=== PATIENT | male | born 1955 | race Caucasian/White ===

== ENCOUNTER 2016-10-14 13:34 | Emergency (ER) | payer OTHER ==
[~2016-10-14] VITALS: Ht 167.6 cm; Wt 73.5 kg
[2016-10-14 13:58] VITALS: BP 91/63
--- NOTE | 2016-10-14 14:16 | NUR ---
Patient ambulated to bed 4.
--- NOTE | 2016-10-14 14:20 | NUR ---
61/M BIB family/daughter c/o using high dose of Heroin into nostril as liquid form x 2am today---no s/s resp distress at this time--alert and oriented, was instructed to come to ER for check up by sponsors---pt states being clear for 2 months. AAOx4, PERRL, BREATHING EVEN AND UNLABORED. ERMD NOTIFIED OF PATIENT STATUS. WILL CONTINUE TO MONITOR.
--- NOTE | 2016-10-14 14:30 | NUR ---
Patient being evaluated by physician at bedside.
[2016-10-14 15:06] VITALS: BP 106/61
--- NOTE | 2016-10-14 15:06 | NUR ---
Patient discharged with v/s stable. Written and verbal after care instructions given and explained. Patient verbalized understanding. Ambulatory with steady gait. All questions addressed prior to discharge. Advised to follow up with PMD.
== END 2016-10-14 15:06 | disposition home or self-care (01) ==
LOC: MED 13:34
DX: F11.10 Opioid abuse, uncomplicated (principal); Z88.5 Allergy status to narcotic agent

== ENCOUNTER 2018-01-10 09:25 | Inpatient (IN) | payer OTHER ==
[~2018-01-10] VITALS: Ht 167.6 cm; Wt 70.3 kg
--- NOTE | 2018-01-10 09:25 | NUR ---
PATIENT BIBA TO BED 3 AT THIS TIME.
[2018-01-10 09:27] VITALS: BP 139/86
--- NOTE | 2018-01-10 09:46 | NUR ---
PT BIBA FOR C/O CP 12/11 SINCE 3AM THIS MORNING. DENIES N/V/DIZZINESS OR SOB. PT IS CALM, FOLLOWING COMMANDS, ANSWERING QUESTIONS, RELAXED WITH LEGS CROSSED. PT PLACED ON ALL MONITORS, VS WNL. EKG COMPLETE DURING TRIAGE --> NSR. DR MARTIN AT BEDSIDE TO [place]
[2018-01-10] MEDS ORDERED: NACL 0.9% 1,000 ML IV ONE (09:50)
[2018-01-10] MEDS ORDERED: LAM200 PO (09:55)
[2018-01-10] MEDS ORDERED: BUPR300T70 PO (09:55)
[2018-01-10] MEDS ORDERED: RISP0.5T3 PO (09:55)
[2018-01-10] MEDS ORDERED: DIVA500T1 PO (09:55)
[2018-01-10 10:12] LABS: BASOPHILS % (AUTO) 0.5 % (0.0-2.0); EOSINOPHILS % (AUTO) 0.7 % (0.0-4.0); HEMATOCRIT 48.9 % (36-52); HEMOGLOBIN 16.5 g/dL (12.0-18.0); LYMPHOCYTES # (AUTO) 2.4 K/uL (2.0-11.5); LYMPHOCYTES % (AUTO) 45.4 % (20.5-51.1); MEAN CORPUSCULAR HEMOGLOBIN 31 pg (27-31); MEAN CORPUSCULAR HGB CONC 34 g/dL (33-37); MEAN CORPUSCULAR VOLUME 92.9 fL (80-94); MONOCYTES # (AUTO) 0.4 K/uL (0.8-1.0); MONOCYTES % (AUTO) 6.8 % (1.7-9.3); NEUTROPHILS # (AUTO) 2.4 K/uL (1.8-7.7); NEUTROPHILS % (AUTO) 46.6 % (42.2-75.2); PLATELET COUNT (AUTO) 120 K/uL (140-450); RED BLOOD CELL COUNT(AUTO) 5.26 MIL/uL (4.20-6.10); RED CELL DISTRIBUTION WIDTH 13.9 % (11.6-13.7); WHITE BLOOD COUNT (AUTO) 5.3 K/uL (4.8-10.8)
[2018-01-10 10:27] LABS: ALBUMIN 3.8 g/dL (3.4-5.0); CARBON DIOXIDE 22.8 mmol/L (21-32); CREATININE 0.9 mg/dL (0.7-1.3); POTASSIUM 3.8 mmol/L (3.5-5.1); TOTAL BILIRUBIN 0.5 mg/dL (0.0-1.0)
--- NOTE | 2018-01-10 10:30 | NUR ---
PT INAPPROPRIATELY GRABBING THE US TECHS BREAST DURING THE ABD US. PT INSTRUCTED NOT TO DO ANYTHING SEXUALLY INAPPROPRIATE LIKE THIS AGAIN TO HOSPITAL STAFF OR PD WILL BE CALLED. PT VERBALIZES UNDERSTANDIND WITH "OK."
[2018-01-10 10:31] LABS: LIPASE 1281 U/L (73-393)
--- NOTE | 2018-01-10 11:00 | NUR ---
Patient appears to be resting comfortably in bed. Vital Signs within normal limits. Respirations even and unlabored. PENDING ADMIT ORDERS
[2018-01-10] MEDS ORDERED: NACL 0.9% 1,000 ML IV SCH (11:16)
[2018-01-10] MEDS ORDERED: ONDANSETRON 4 MG/2 ML VIAL IVP PRN (11:20)
[2018-01-10] MEDS ORDERED: ACETAMINOPHEN 325 MG TAB PO PRN (11:20)
[2018-01-10] MEDS ORDERED: HYDROcodone/APAP 10/325 MG 1 TAB TAB PO PRN (11:25)
[2018-01-10] MEDS ORDERED: MORPHINE SULFATE 4 MG/ML SYR IVP PRN (11:40)
--- NOTE | 2018-01-10 11:45 | NUR ---
PT ARRIVED ON THE UNIT ON A GURNEY WITH 2 ER NURSES. PT IS ALERT AND ORIENTED. AMBULATED FROM GURNEY TO BED. STEADY GAIT. INTRODUCED MYSELF AND UPDATED THE BOARD. IV ON R WRIST 20G SL. NC 2L O2. PT GUARDED. V/S WITHIN NORMAL RANGE. STATES HE HAS SOME CHEST PAIN STILL. PROBABLY FROM S/P FALL 8 DAYS AGO IN THE SHOWER. PT HAS A BRUISE ON THE L RIB. OTHERWISE SKIN IS INTACT. CHEST XRAY WAS NEGATIVE FOR FRACTURE. PT IS NPO. LAST BM 01/10, THIS MORNING. LIPASE IS 1281. ALCOHOL 363. PER PT, PT DRANK ALCOHOL THIS MORNING. 1 TALL CAN. PT SMOKES- 5 CIGS/DAY. MRSA DONE. TELE MONITOR ADMINISTERED. ORIENTED PT TO THE ROOM, CALL LIGHT USE. WILL CONTINUE TO MONITOR PT.
--- NOTE | 2018-01-10 11:53 | NUR ---
Patient will be admitted to care of [facility]. Admited to TELE ROOM 120B. Belongings list completed. Report to JAKY LEMA.
[2018-01-10 12:00] VITALS: BP 149/91
--- NOTE | 2018-01-10 12:57 | NUR ---
ADMINISTERED BANANA BAG. PT TOLERATING WELL. WILL CONTINUE TO MONITOR PT.
[2018-01-10] MEDS ORDERED: THIAMINE IV SCH (13:00)
[2018-01-10] MEDS ORDERED: LACT RING IV SCH (13:00)
[2018-01-10] MEDS ORDERED: DEXT 5% IV SCH (13:00)
[2018-01-10] MEDS ORDERED: FOLIC ACID IV SCH (13:00)
[2018-01-10] MEDS ORDERED: MULTIVITAMIN IV SCH (13:00)
[2018-01-10] MEDS: LORazepam 2 MG/ML VIAL IVP PRN ×2 (14:12→20:04)
--- NOTE | 2018-01-10 14:17 | NUR ---
PT ANXIOUS. AMBULATED TO THE NURSES STATION AND SPOKE ABOUT CHECKING HIMSELF OUT. ENCOURAGED PT TO GO BACK TO BED. PT STILL GETTING THE BANANA BAG. PT NOW BACK IN BED. ADMINISTERED SOME ATIVAN, IVP AND TYLENOL FOR MILD PAIN IN RIB AREA. TOLERATED WELL. WILL CONTINUE TO MONITOR PT.
[2018-01-10 14:50] VITALS: BP 149/91
--- NOTE | 2018-01-10 15:08 | NUR ---
ADMISSION DOCUMENTATION JUST FINISHED. ACTUAL ADMISSION AND ASSESSMENT DONE AT 1200. JUST DOCUMENTED LATER. NOTIFIED CHARGE NURSE, BRAN. CHARGE NURSE AWARE. PT RESTING COMFORTABLY. WILL CONTINUE TO MONITOR PT.
--- NOTE | 2018-01-10 15:10 | NUR ---
PHARMACY CALLED REGARDING MORPHINE ORDER. CALLED DR. BARRAZA REGARDING MORPHINE ORDER D/T PT'S ALLERGY. DR BARRAZA SPOKE TO PT EARLIER AND PER PT, PT DOES NOT HAVE AN ALLERGY TO MORPHINE. WILL NOTIFY PHARMACY SO THEY CAN VERIFY MED.
[2018-01-10 16:00] VITALS: BP_SYST 150; BP_SYST 96; BP_DIAS 48; BP_DIAS 71
--- NOTE | 2018-01-10 16:00 | NUR ---
PT SLEEPING SOUNDLY. V/S DONE. BP LOW 96/48, O2 SAT 91%. NC OFF. ADMINISTERED NC AT 3L. DID NOT WAKE UP. WILL CONTINUE TO MONITOR PT.
--- NOTE | 2018-01-10 17:44 | NUR ---
PT WOKE UP FROM HIS NAP. CHECKED HIS O2 SATURATION AGAIN. O2 SAT AT 94%. PT IS STATING THE PAIN IS BETTER TOO. HANDS SHAKING. WILL CONTINUE TO MONITOR PT.
[2018-01-10 18:50] LABS: CREATINE KINASE MB 1.6 ng/mL (0-3.6)
--- NOTE | 2018-01-10 19:18 | NUR ---
ENDORSED PT TO THE SALESPERSON TERRAZZO TILES NURSE AT BEDSIDE FOR CONTINUITY OF CARE. PT IN STABLE CONDITION. SLEEPING.
--- NOTE | 2018-01-10 19:19 | NUR ---
REPORT RECEIVED FROM AM NURSE. PT IN STABLE CONDITION. AAOX2. BOARD UPDATED AND INTRODUCED SELF TO PT. IV SITE PATENT AND INTACT. SKIN WARM, DRY, AND INTACT WITH NO OPEN WOUNDS. BED LOCKED IN LOW POSITION. CALL FRAGOSO WITHIN REACH. PT IN 01/10 PAIN. WILL MEDICATE.
[2018-01-10 20:00] VITALS: BP 144/67
--- NOTE | 2018-01-10 20:03 | NUR ---
PM MEDS GIVEN. MORPHINE AND ATIVAN ALSO GIVEN. PT TOLERATED WELL. WILL CONTINUE TO MONITOR.
[2018-01-10] MEDS: MORPHINE SULFATE 4 MG/ML SYR IVP PRN (20:04)
[2018-01-10] MEDS ORDERED: risperiDONE 1 MG TAB PO SCH (21:00)
[2018-01-10] MEDS ORDERED: DIVALPROEX 500 MG TABER PO SCH (21:00)
--- NOTE | 2018-01-10 22:00 | NUR ---
PT ACCIDENTALLY PULLED OUT IV. LOTS OF BLOOD ON THE FLOOR, BED, AND PT HIMSELF. STOPPED THE BLEEDING. LINEN CHANGE, GOWN CHANGE. EMILIANO BUCK CALLED EVS TO CLEAN UP ROOM AND LEFT 2 MESSAGES. WILL PUT IN NEW IV LINE AFTER EVS CLEANS ROOM UP.
[2018-01-10] MEDS ORDERED: POTASSIUM CHL 20 MEQ/D5-1/2NS 1,000 ML IV SCH (23:40)
[2018-01-11] VITALS: BP 132/79
[2018-01-11] MEDS: LORazepam 2 MG/ML VIAL IVP PRN (00:18)
[2018-01-11] MEDS: MORPHINE SULFATE 4 MG/ML SYR IVP PRN (00:21)
--- NOTE | 2018-01-11 00:30 | NUR ---
PT PULLED OUT IV FOR SECOND TIME. PT STATED HE WANTS TO GO AMA. TELE MONITOR AND GOWN ALSO TAKEN OFF. AFTER TALKING TO HIM HE DECIDED TO STAY.
--- NOTE | 2018-01-11 00:45 | NUR ---
PT VERY RESTLESS AND AGITATED EVEN AFTER ATIVAN AT 0021. PT STANDING UP IN ROOM WITH NO GOWN ON. ASKED PT IF HE WAS GOING TO STAY. HE SAID HE WANTED TO GO AMA.
--- NOTE | 2018-01-11 01:20 | NUR ---
PT SIGNED AMA PAPERWORK.
--- NOTE | 2018-01-11 01:40 | NUR ---
PT IN ROOM VERY RESTLESS. ASKED IF HE HAD ANYONE TO PICK HIM UP. PT STATED DAUGHTER WILL PICK HIM UP. DAUGHTERED CALL AND NO ANSWER.
--- NOTE | 2018-01-11 02:10 | NUR ---
CALLED PT A TAXI TO THE ADDRESS LISTED ON FACE SHEET. PT CONFIRMED THE ADDRESS IS HIS OWN AND SOMEONE IS HOME.
--- NOTE | 2018-01-11 02:20 | NUR ---
GAVE PT A TAXI VOUCHER TO GET HOME. BAO APPROVED THE VOUCHER.
--- NOTE | 2018-01-11 02:30 | NUR ---
[facility]XI ARRIVED. HELPED PT TO TAXI AND GAVE VOUCHER TO THE [employer]FORMER ASSEMBLER. PT LEFT.
[2018-01-11] MEDS ORDERED: NON-FORMULARY ITEM (Bupropion HCl* (Wellbutrin Xl*) 300 MG) PO SCH (09:00)
[2018-01-11] MEDS ORDERED: lamoTRIgine 25 MG TAB PO SCH (09:00)
[2018-01-11] MEDS ORDERED: ENOXAPARIN 30 MG/0.3 ML SYR SUBQ SCH (09:00)
[2018-01-11] MEDS ORDERED: FAMOTIDINE 20 MG TAB PO SCH (09:00)
[2018-01-11] MEDS ORDERED: PATIENTS OWN TABLET PO SCH (09:00)
--- NOTE | 2018-01-12 07:38 | NUR ---
RETRO ER REPORT, H&P AND DISCHARGE SUMMARY FAXED TO [facility] [phone] PHONE ROYCE [phone]
== END 2018-01-11 02:30 | disposition left against medical advice (07) | DRG 282 ==
LOC: MED 09:25 → MTU 11:21
PROVIDERS: ADMIT Hospitalist; ATTEND Hospitalist
DX: K85.20 Alcohol induced acute pancreatitis without necrosis or infection (principal); K74.60 Unspecified cirrhosis of liver; F20.9 Schizophrenia, unspecified; F03.90 Unspecified dementia, unspecified severity, without behavioral disturbance, psychotic disturbance, mood disturbance, and anxiety; B19.20 Unspecified viral hepatitis C without hepatic coma; K21.9 Gastro-esophageal reflux disease without esophagitis; F17.210 Nicotine dependence, cigarettes, uncomplicated; Z53.21 Procedure and treatment not carried out due to patient leaving prior to being seen by health care provider; F10.129 Alcohol abuse with intoxication, unspecified; Y90.8 Blood alcohol level of 240 mg/100 ml or more; S20.219A Contusion of unspecified front wall of thorax, initial encounter; X58.XXXA Exposure to other specified factors, initial encounter; Y93.89 Activity, other specified; Y92.89 Other specified places as the place of occurrence of the external cause; Y99.8 Other external cause status; Z79.899 Other long term (current) drug therapy; Z91.19 Patient's noncompliance with other medical treatment and regimen
CPT/HCPCS: 36415; 71045; 76700; 80053; 82550; 82553; 83690; 83880; 84484; 85025; 87081; 93005; 99285; A9153; G0482; J2060; J2270; J3411; J3490; J7030; Q0092

== ENCOUNTER 2019-10-03 14:28 | Emergency (ER) | payer OTHER ==
[~2019-10-03] VITALS: Ht 162.6 cm; Wt 55.8 kg
[~2019-10-03 14:28] MED LIST: BUPR300T70 PO; DIVA500T1 PO; LAM200 PO; RISP0.5T3 PO
[2019-10-03 14:30] VITALS: BP 129/73
--- NOTE | 2019-10-03 14:36 | NUR ---
Pt. ambulated to bed 4
--- NOTE | 2019-10-03 14:44 | NUR ---
64 y/o male with cellulitis to rt forearm. redness, slough, and swelling noted to rt arm. cms intact. cap refill <3 seconds. 8/10 burning pain. pt states when he places gauze over area and removes it more skin is removed. denies fever/chills. no bleeding at this time. vss medhx: denies allergies: nka
--- NOTE | 2019-10-03 15:01 | NUR ---
DR MARTIN AT BEDSIDE EXAMINING PT
[2019-10-03] MEDS ORDERED: ceFAZolin 1,000 MG VIAL IM ONE (15:10)
[2019-10-03] MEDS ORDERED: WATER STERILE 10 ML MC ONE (15:17)
--- NOTE | 2019-10-03 15:28 | NUR ---
LAB AT BEDSIDE
[2019-10-03 15:41] LABS: BASOPHILS % (AUTO) 0.3 % (0.0-2.0); EOSINOPHILS # (AUTO) 0.1 K/uL (0-0.4); EOSINOPHILS % (AUTO) 1.4 % (0.0-4.0); HEMATOCRIT 41.4 % (36-52); HEMOGLOBIN 14.1 g/dL (12.0-18.0); LYMPHOCYTES # (AUTO) 1.2 K/uL (2.0-11.5); MEAN CORPUSCULAR HEMOGLOBIN 33 pg (27-31); MEAN CORPUSCULAR HGB CONC 34 g/dL (33-37); MEAN CORPUSCULAR VOLUME 96.6 fL (80-94); MONOCYTES # (AUTO) 1.3 K/uL (0.8-1.0); MONOCYTES % (AUTO) 12.9 % (1.7-9.3); NEUTROPHILS # (AUTO) 7.6 K/uL (1.8-7.7); NEUTROPHILS % (AUTO) 73.4 % (42.2-75.2); PLATELET COUNT (AUTO) 184 K/uL (140-450); RED BLOOD CELL COUNT(AUTO) 4.29 MIL/uL (4.20-6.10); RED CELL DISTRIBUTION WIDTH 13.8 % (11.6-13.7); WHITE BLOOD COUNT (AUTO) 10.3 K/uL (4.8-10.8)
[2019-10-03 15:52] LABS: ALBUMIN 2.7 g/dL (3.4-5.0); ANION GAP 11.8 (8-16); CARBON DIOXIDE 26.8 mmol/L (21-32); CREATININE 0.9 mg/dL (0.6-1.3); POTASSIUM 3.6 mmol/L (3.5-5.1); TOTAL BILIRUBIN 0.7 mg/dL (0.0-1.0)
--- NOTE | 2019-10-03 16:02 | NUR ---
SITTING UPRIGHT AWAKE AND ALERT. RR EVEN AND UNLABORED. HOB ELEVATED. VSS. WILL CONTINUE TO MONITOR.
[2019-10-03] MEDS ORDERED: BACITRACIN OINT 500 UNITS/GM PKT TP ONE ×2 (16:06→16:10)
--- NOTE | 2019-10-03 16:15 | NUR ---
BACITRACIN APPLIED AND ARM WRAPPED WITH GAUZE, SLING APPLIED BY EMT. CAP REFILL <3 SECONDS, RADIAL PULSE WNL
[2019-10-03 16:22] VITALS: BP 124/65
--- NOTE | 2019-10-03 16:22 | NUR ---
NADR, PAIN 09/10
--- NOTE | 2019-10-03 16:22 | NUR ---
Patient discharged with v/s stable. Written and verbal after care instructions given and explained. Patient alert, oriented and verbalized understanding of instructions. Ambulatory with steady gait. All questions addressed prior to discharge. ID band removed. Patient advised to follow up with PMD. Rx of NORCO AND AUGMENTIN given. Patient educated on indication of medication including possible reaction and side effects. Opportunity to ask questions provided and answered. INSTRUCTED PT TO TAKE AUGMENTIN WITH MEAL AND TO NOT DRIVE AFTER TAKING NORCO IT MAY CAUSE DROWSINESS
== END 2019-10-03 16:22 | disposition home or self-care (01) ==
LOC: MED 14:28
DX: L03.113 Cellulitis of right upper limb (principal); K21.9 Gastro-esophageal reflux disease without esophagitis; F20.9 Schizophrenia, unspecified; Z86.19 Personal history of other infectious and parasitic diseases; Z79.899 Other long term (current) drug therapy
CPT/HCPCS: 36415; 73090; 80053; 82550; 83605; 85025; 87040; 90471; 90715; 96372; 99284; J0690; Q0092

== ENCOUNTER 2019-10-05 11:23 | Emergency (ER) | payer OTHER ==
[~2019-10-05] VITALS: Ht 165.1 cm; Wt 52.6 kg
[2019-10-05 11:28] VITALS: BP 124/79
--- NOTE | 2019-10-05 11:32 | NUR ---
AMBULATED TO BED 11
--- NOTE | 2019-10-05 11:39 | NUR ---
64M RECHECK FOR DOG BITE SEEN AND TREATED LAST TUESDAY. pt. stated he been bitten by a chihuahua about 2 weeks ago and treated the bite by; water and soap, peroxide solution, and alcohol. TOOK NORCO YESTERDAY STILL C/O RT ARM PAIN 01/10. patient denies n/v/d. no LOC. PmHx: schizophrenia, bipolar disorder, dementia. rx: norco this am. other meds on med recon profile but states he has not taken them in about 6-8 weeks.
[2019-10-05] MEDS ORDERED: VARE1TAB27 PO (11:46)
[2019-10-05] MEDS ORDERED: DIPH25CA86 PO (11:46)
[2019-10-05] MEDS ORDERED: MIRT15TA PO (11:46)
[2019-10-05] MEDS ORDERED: ATOR10TA PO (11:46)
[2019-10-05] MEDS ORDERED: PAX10 PO (11:46)
--- NOTE | 2019-10-05 11:48 | NUR ---
pt. to be discharged and come back in 1 hour to be admitted. pt just needs to grab to their phone and it would take them about an hour according to pt.
--- NOTE | 2019-10-05 12:05 | NUR ---
pt. discharged by Dr. Chua
== END 2019-10-05 12:05 | disposition home or self-care (01) ==
LOC: MED 11:23
DX: L03.113 Cellulitis of right upper limb (principal); F03.90 Unspecified dementia, unspecified severity, without behavioral disturbance, psychotic disturbance, mood disturbance, and anxiety; F20.9 Schizophrenia, unspecified; F31.9 Bipolar disorder, unspecified; Z79.899 Other long term (current) drug therapy
CPT/HCPCS: 99281

== ENCOUNTER 2019-10-05 13:58 | Inpatient (IN) | payer OTHER ==
[~2019-10-05] VITALS: Ht 162.6 cm; Wt 52.6 kg
[~2019-10-05 13:58] MED LIST changes: +ATOR10TA PO; +DIPH25CA86 PO; +MIRT15TA PO; +PAX10 PO; +VARE1TAB27 PO
[2019-10-05 14:07] VITALS: BP 134/61
[2019-10-05] MEDS ORDERED: AMPICILLIN/SULBACTAM 3 GM in NACL 0.9% 100 ML IV ONE (14:20)
[2019-10-05] MEDS ORDERED: CLINDAMYCIN 600 MG in DEXTROSE 5% 50 ML IV ONE (14:20)
[2019-10-05] MEDS ORDERED: CLINDAMYCIN 600 MG/4 ML VIAL ONE (14:32)
[2019-10-05] MEDS ORDERED: AMPICILLIN/SULBACTAM 3 GM VIAL ONE (14:33)
[2019-10-05 14:46] LABS: BASOPHILS % (AUTO) 0.3 % (0.0-2.0); EOSINOPHILS % (AUTO) 0.3 % (0.0-4.0); HEMATOCRIT 42.3 % (36-52); HEMOGLOBIN 14.4 g/dL (12.0-18.0); LYMPHOCYTES % (AUTO) 10.5 % (20.5-51.1); MEAN CORPUSCULAR HEMOGLOBIN 33 pg (27-31); MEAN CORPUSCULAR HGB CONC 34 g/dL (33-37); MEAN CORPUSCULAR VOLUME 97.3 fL (80-94); MONOCYTES # (AUTO) 0.5 K/uL (0.8-1.0); MONOCYTES % (AUTO) 5.5 % (1.7-9.3); NEUTROPHILS % (AUTO) 83.4 % (42.2-75.2); PLATELET COUNT (AUTO) 239 K/uL (140-450); RED BLOOD CELL COUNT(AUTO) 4.35 MIL/uL (4.20-6.10); WHITE BLOOD COUNT (AUTO) 9.6 K/uL (4.8-10.8)
[2019-10-05 15:05] LABS: CREATININE 0.9 mg/dL (0.6-1.3); TOTAL BILIRUBIN 0.8 mg/dL (0.0-1.0)
[2019-10-05] MEDS: NACL 0.9% 1,000 ML IV SCH (15:14)
[2019-10-05] MEDS ORDERED: NACL 0.9% 1,000 ML IV SCH (15:14)
[2019-10-05] MEDS ORDERED: HYDROcodone/APAP 5/325 MG 1 TAB TAB PO PRN (15:15)
[2019-10-05] MEDS ORDERED: ACETAMINOPHEN 325 MG TAB PO PRN ×2 (15:15)
[2019-10-05] MEDS ORDERED: DOCUSATE SODIUM 100 MG GELCAP PO PRN (15:15)
[2019-10-05] MEDS ORDERED: MORPHINE SULFATE 2 MG/ML SYR IVP PRN (15:15)
[2019-10-05] MEDS ORDERED: ONDANSETRON 4 MG/2 ML VIAL IVP PRN (15:15)
[2019-10-05] MEDS ORDERED: LORazepam 1 MG TAB PO PRN (15:15)
[2019-10-05] MEDS ORDERED: ZOLPIDEM 5 MG TAB PO PRN (15:15)
[2019-10-05] MEDS ORDERED: ONDANSETRON 4 MG/2 ML VIAL IM/IVP PRN (15:15)
[2019-10-05 15:25] LABS: APPEARANCE,URINE CLEAR (CLEAR); BILIRUBIN,URINE NEGATIVE (NEGATIVE); BLOOD, URINE NEGATIVE (NEGATIVE); COLOR,URINE AMBER (YELLOW); LEUKOCYTE ESTERASE ,URINE NEGATIVE (NEGATIVE); NITRITE, URINE NEGATIVE (NEGATIVE); UGLUCOSE NEGATIVE (NEGATIVE)
[2019-10-05 16:11] LABS: MAGNESIUM 1.7 mg/dL (1.8-2.4); PHOSPHORUS 2.8 mg/dL (2.5-4.9); THYROID STIMULATING HORMONE 4.61 uIU/mL (0.34-3.74)
[2019-10-05] MEDS ORDERED: VANCOMYCIN PER PHARMACY MC PRN (18:00)
[2019-10-05 20:00] VITALS: BP 121/71
[2019-10-05 20:07] LABS: BARBITURATE, URINE NEGATIVE ng/ml (NEG <=200); BENZODIAZEPINE, URINE NEGATIVE ng/mL (NEG <=200); CANNABINOID, URINE NEGATIVE ng/mL (NEG <=50); COCAINE, URINE NEGATIVE ng/mL (NEG <=300); OPIATE, URINE POSITIVE ng/mL (NEG <=2000); PHENCYCLIDINE SCREEN,URINE NEGATIVE ng/mL (NEG <=25)
[2019-10-05] MEDS ORDERED: MIRTAZAPINE 15 MG TAB PO SCH (21:00)
[2019-10-05] MEDS ORDERED: VARENICLINE TARTRATE 1 MG PO SCH (21:00)
[2019-10-05] MEDS ORDERED: risperiDONE 1 MG TAB PO SCH (21:00)
[2019-10-05] MEDS ORDERED: DIVALPROEX 500 MG TABER PO SCH (21:00)
[2019-10-05] MEDS: VANCOMYCIN 500 MG in DEXTROSE 5% 100 ML IV SCH (21:04)
[2019-10-05] MEDS: HYDROcodone/APAP 5/325 MG 1 TAB TAB PO PRN (21:23)
[2019-10-05] MEDS: MAG SULF 2000 MG/WATER PREMIX 50 ML IV PRN (23:23)
[2019-10-06] VITALS: BP 136/73
[2019-10-06] MEDS: AMPICILLIN/SULBACTAM 3 GM in NACL 0.9% 100 ML IV SCH ×5 (01:09→23:12)
[2019-10-06] MEDS: NACL 0.9% 1,000 ML IV SCH ×3 (03:44→23:24)
[2019-10-06] MEDS ORDERED: PARoxetine 10 MG TAB PO SCH (09:00)
[2019-10-06] MEDS: HYDROcodone/APAP 5/325 MG 1 TAB TAB PO PRN ×3 (10:13→21:19)
[2019-10-06] MEDS: VANCOMYCIN 500 MG in DEXTROSE 5% 100 ML IV SCH ×2 (10:13→20:15)
[2019-10-06] MEDS: DOCUSATE SODIUM 100 MG GELCAP PO SCH (10:13)
[2019-10-06] MEDS: NICOTINE TRANSD SYS 14 MG/24 HR PATCH TD SCH (10:14)
[2019-10-06] MEDS: ENOXAPARIN 40 MG/0.4 ML SYR SUBQ SCH (10:26)
[2019-10-06 11:15] LABS: EOSINOPHILS # (AUTO) 0.1 K/uL (0-0.4); MEAN CORPUSCULAR VOLUME 97.4 fL (80-94); NEUTROPHILS # (AUTO) 5.1 K/uL (1.8-7.7)
[2019-10-06 11:21] LABS: BASOPHILS # (AUTO) 0.1 K/uL (0.00-0.22); BASOPHILS % (AUTO) 1.6 % (0.0-2.0); EOSINOPHILS % (AUTO) 1.2 % (0.0-4.0); HEMATOCRIT 38.8 % (36-52); LYMPHOCYTES # (AUTO) 0.7 K/uL (2.0-11.5); LYMPHOCYTES % (AUTO) 10.7 % (20.5-51.1); MEAN CORPUSCULAR HEMOGLOBIN 33 pg (27-31); MEAN CORPUSCULAR HGB CONC 34 g/dL (33-37); MONOCYTES # (AUTO) 0.4 K/uL (0.8-1.0); MONOCYTES % (AUTO) 6.8 % (1.7-9.3); NEUTROPHILS % (AUTO) 79.7 % (42.2-75.2); PLATELET COUNT (AUTO) 203 K/uL (140-450); RED BLOOD CELL COUNT(AUTO) 3.99 MIL/uL (4.20-6.10); RED CELL DISTRIBUTION WIDTH 13.7 % (11.6-13.7); WHITE BLOOD COUNT (AUTO) 6.5 K/uL (4.8-10.8)
[2019-10-06 11:36] LABS: ALBUMIN 2.3 g/dL (3.4-5.0); ANION GAP 10.8 (8-16); CARBON DIOXIDE 26.3 mmol/L (21-32); MAGNESIUM 1.7 mg/dL (1.8-2.4); POTASSIUM 4.1 mmol/L (3.5-5.1); TOTAL BILIRUBIN 0.5 mg/dL (0.0-1.0)
[2019-10-06] MEDS: MAG SULF 2000 MG/WATER PREMIX 50 ML IV PRN (21:28)
[2019-10-07] VITALS: BP 113/68
[2019-10-07] MEDS: HYDROcodone/APAP 5/325 MG 1 TAB TAB PO PRN ×4 (01:26→19:01)
[2019-10-07] MEDS: AMPICILLIN/SULBACTAM 3 GM in NACL 0.9% 100 ML IV SCH ×3 (05:29→17:09)
[2019-10-07 07:33] LABS: BASOPHILS % (AUTO) 0.3 % (0.0-2.0); EOSINOPHILS # (AUTO) 0.1 K/uL (0-0.4); EOSINOPHILS % (AUTO) 1.4 % (0.0-4.0); HEMATOCRIT 39.1 % (36-52); HEMOGLOBIN 13.3 g/dL (12.0-18.0); LYMPHOCYTES % (AUTO) 18.5 % (20.5-51.1); MEAN CORPUSCULAR HEMOGLOBIN 33 pg (27-31); MEAN CORPUSCULAR HGB CONC 34 g/dL (33-37); MEAN CORPUSCULAR VOLUME 97.6 fL (80-94); MONOCYTES # (AUTO) 0.5 K/uL (0.8-1.0); MONOCYTES % (AUTO) 8.5 % (1.7-9.3); NEUTROPHILS % (AUTO) 71.3 % (42.2-75.2); PLATELET COUNT (AUTO) 222 K/uL (140-450); RED CELL DISTRIBUTION WIDTH 13.6 % (11.6-13.7); WHITE BLOOD COUNT (AUTO) 5.6 K/uL (4.8-10.8)
[2019-10-07 07:43] LABS: ALBUMIN 2.2 g/dL (3.4-5.0); ANION GAP 9.6 (8-16); CARBON DIOXIDE 28.2 mmol/L (21-32); CREATININE 0.7 mg/dL (0.6-1.3); MAGNESIUM 1.9 mg/dL (1.8-2.4); POTASSIUM 3.8 mmol/L (3.5-5.1); TOTAL BILIRUBIN 0.5 mg/dL (0.0-1.0)
[2019-10-07 08:00] VITALS: BP 130/73
[2019-10-07] MEDS: DOCUSATE SODIUM 100 MG GELCAP PO SCH (08:44)
[2019-10-07] MEDS: NICOTINE TRANSD SYS 14 MG/24 HR PATCH TD SCH (08:45)
[2019-10-07] MEDS: ENOXAPARIN 40 MG/0.4 ML SYR SUBQ SCH (09:08)
[2019-10-07] MEDS: VANCOMYCIN 1,000 MG in DEXTROSE 5% 250 ML IV SCH ×2 (11:13→22:44)
[2019-10-07 16:00] VITALS: BP 137/69
[2019-10-07] MEDS: NACL 0.9% 1,000 ML IV SCH (16:33)
[2019-10-08 00:15] VITALS: BP 146/74
[2019-10-08] MEDS: AMPICILLIN/SULBACTAM 3 GM in NACL 0.9% 100 ML IV SCH ×4 (00:43→18:04)
[2019-10-08] MEDS: HYDROcodone/APAP 5/325 MG 1 TAB TAB PO PRN ×4 (00:43→18:02)
[2019-10-08] MEDS: NACL 0.9% 1,000 ML IV SCH ×2 (06:05→18:14)
[2019-10-08 06:36] LABS: BASOPHILS % (AUTO) 0.8 % (0.0-2.0); EOSINOPHILS # (AUTO) 0.2 K/uL (0-0.4); EOSINOPHILS % (AUTO) 3.1 % (0.0-4.0); HEMATOCRIT 37.3 % (36-52); HEMOGLOBIN 12.5 g/dL (12.0-18.0); LYMPHOCYTES # (AUTO) 1.1 K/uL (2.0-11.5); LYMPHOCYTES % (AUTO) 21.5 % (20.5-51.1); MEAN CORPUSCULAR HEMOGLOBIN 33 pg (27-31); MEAN CORPUSCULAR HGB CONC 33 g/dL (33-37); MEAN CORPUSCULAR VOLUME 98.1 fL (80-94); MONOCYTES # (AUTO) 0.6 K/uL (0.8-1.0); MONOCYTES % (AUTO) 10.6 % (1.7-9.3); NEUTROPHILS # (AUTO) 3.4 K/uL (1.8-7.7); PLATELET COUNT (AUTO) 219 K/uL (140-450); RED BLOOD CELL COUNT(AUTO) 3.81 MIL/uL (4.20-6.10); RED CELL DISTRIBUTION WIDTH 13.4 % (11.6-13.7); WHITE BLOOD COUNT (AUTO) 5.3 K/uL (4.8-10.8)
[2019-10-08 06:40] LABS: ALBUMIN 2.2 g/dL (3.4-5.0); ANION GAP 9.6 (8-16); CARBON DIOXIDE 27.1 mmol/L (21-32); CREATININE 0.8 mg/dL (0.6-1.3); MAGNESIUM 1.6 mg/dL (1.8-2.4); POTASSIUM 3.7 mmol/L (3.5-5.1); TOTAL BILIRUBIN 0.3 mg/dL (0.0-1.0)
[2019-10-08 08:00] VITALS: BP 119/75
[2019-10-08] MEDS: DOCUSATE SODIUM 100 MG GELCAP PO SCH (09:00)
[2019-10-08] MEDS: NICOTINE TRANSD SYS 14 MG/24 HR PATCH TD SCH (09:34)
[2019-10-08] MEDS: ENOXAPARIN 40 MG/0.4 ML SYR SUBQ SCH (09:40)
[2019-10-08] MEDS: VANCOMYCIN 1,000 MG in DEXTROSE 5% 250 ML IV SCH (12:24)
[2019-10-08] MEDS ORDERED: AMOX-999 PO ×2 (15:40→16:41)
[2019-10-08] MEDS ORDERED: SULF-58 PO ×2 (15:40→16:41)
[2019-10-08 16:00] VITALS: BP 120/65
== END 2019-10-08 19:10 | disposition home or self-care (01) | DRG 383 ==
LOC: MED 13:58 → MTU 15:20
PROVIDERS: ADMIT Hospitalist; ATTEND Hospitalist
DX: L03.113 Cellulitis of right upper limb (principal); E44.0 Moderate protein-calorie malnutrition; F03.90 Unspecified dementia, unspecified severity, without behavioral disturbance, psychotic disturbance, mood disturbance, and anxiety; F20.9 Schizophrenia, unspecified; E83.42 Hypomagnesemia; F31.9 Bipolar disorder, unspecified; Z87.891 Personal history of nicotine dependence; Z79.899 Other long term (current) drug therapy; Z91.19 Patient's noncompliance with other medical treatment and regimen; Z68.1 Body mass index [BMI] 19.9 or less, adult; Z71.6 Tobacco abuse counseling
CPT/HCPCS: 36415; 71045; 80053; 80202; 80305; 81003; 83036; 83735; 83880; 84100; 84436; 84443; 85025; 86140; 87040; 87081; 93005; 93971; 96365; 99285; J0295; J0690; J1644; J1650; J3370; J3475; J3490; J7030; J7060; Q0092; Q0163

== ENCOUNTER 2020-03-29 11:59 | Emergency (ER) | payer MEDICARE, OTHER ==
[~2020-03-29] VITALS: Ht 157.5 cm; Wt 68.0 kg
[~2020-03-29 11:59] MED LIST changes: +AMOX-999 PO; +SULF-58 PO
[2020-03-29 12:03] VITALS: BP 124/72
[2020-03-29 12:35] VITALS: BP 124/72
== END 2020-03-29 12:35 | disposition home or self-care (01) ==
LOC: MED 11:59
DX: T40.1X1A Poisoning by heroin, accidental (unintentional), initial encounter (principal); F03.90 Unspecified dementia, unspecified severity, without behavioral disturbance, psychotic disturbance, mood disturbance, and anxiety; F32.9 Major depressive disorder, single episode, unspecified; F20.9 Schizophrenia, unspecified; Z79.899 Other long term (current) drug therapy; Y92.89 Other specified places as the place of occurrence of the external cause
CPT/HCPCS: 99283

== ENCOUNTER 2020-09-14 12:51 | Emergency (ER) | payer MEDICARE, OTHER ==
[~2020-09-14] VITALS: Ht 162.6 cm; Wt 52.2 kg
[~2020-09-14 12:51] MED LIST changes: +MIRT-91 PO; -MIRT15TA PO
[2020-09-14 13:04] VITALS: BP 123/59
--- NOTE | 2020-09-14 13:14 | NUR ---
AMBULATED TO BED 11
--- NOTE | 2020-09-14 13:22 | NUR ---
65 YO M BIB SELF FOR C/C OF 6/10 R ARM PAIN AND SWELLING. THERE IS A SMALL SKIN TEAR ON FOREARM NEAR SITE OF SWELLING. ROM INTACT. RADIAL PULSES ARE EQUAL AND REGULAR. PT IS HOMELESS, DENIES DRUG USE BUT ADMITS TO DAILY ALCOHOL USE. PT HAD ONE TALL CAN TODAY AND TOOK UNKNOWN MG OF IBUPROFEN FOR PAIN WITH MILD RELIEF. PT ALSO REPORT HX OF CELLULITIS. BED LOCKED AND IN LOWEST POSITION. SIDE RAILS X1. PROVIDED PT WITH SANDWICH PER REQUEST. MED HX: CELLULITIS, HEP C
[2020-09-14] MEDS ORDERED: LIDOCAINE 2% 1000 MG/50 ML VIAL INJ ONE (14:20)
[2020-09-14 15:03] LABS: BASOPHILS % (AUTO) 0.2 % (0.0-2.0); EOSINOPHILS # (AUTO) 0.1 K/uL (0-0.4); EOSINOPHILS % (AUTO) 0.6 % (0.0-4.0); HEMATOCRIT 36.6 % (36-52); HEMOGLOBIN 12.5 g/dL (12.0-18.0); LYMPHOCYTES # (AUTO) 0.8 K/uL (2.0-11.5); LYMPHOCYTES % (AUTO) 8.1 % (20.5-51.1); MEAN CORPUSCULAR HEMOGLOBIN 32 pg (27-31); MEAN CORPUSCULAR HGB CONC 34 g/dL (33-37); MEAN CORPUSCULAR VOLUME 93.5 fL (80-94); MONOCYTES # (AUTO) 0.8 K/uL (0.8-1.0); MONOCYTES % (AUTO) 7.4 % (1.7-9.3); NEUTROPHILS # (AUTO) 8.7 K/uL (1.8-7.7); PLATELET COUNT (AUTO) 141 K/uL (140-450); RED BLOOD CELL COUNT(AUTO) 3.91 MIL/uL (4.20-6.10); RED CELL DISTRIBUTION WIDTH 13.5 % (11.6-13.7); WHITE BLOOD COUNT (AUTO) 10.4 K/uL (4.8-10.8)
--- NOTE | 2020-09-14 15:03 | NUR ---
OBTAINED CONSENT FOR CT SCAN WITH CONTRAST
[2020-09-14 15:14] LABS: NEUTROPHILS % (AUTO) 83.7 % (42.2-75.2)
[2020-09-14 15:17] LABS: PROTHROMBIN TIME 10.2 secs (10.8-13.4)
[2020-09-14 15:20] LABS: ALBUMIN 3.5 g/dL (3.4-5.0); ANION GAP 13.7 (8-16); CARBON DIOXIDE 26.8 mmol/L (21-32); CREATININE 0.9 mg/dL (0.6-1.3); POTASSIUM 3.5 mmol/L (3.5-5.1); TOTAL BILIRUBIN 0.8 mg/dL (0.0-1.0)
--- NOTE | 2020-09-14 16:04 | NUR ---
PT TAKEN TO CT VIA WHEELCHAIR
[2020-09-14] MEDS ORDERED: AMOX1TAB8 PO ×2 (17:00→17:01)
[2020-09-14] MEDS ORDERED: ACET-2619 PO (17:06)
[2020-09-14 17:12] VITALS: BP 126/61
== END 2020-09-14 17:12 | disposition home or self-care (01) ==
LOC: MED 12:51
DX: S41.111A Laceration without foreign body of right upper arm, initial encounter (principal); L03.113 Cellulitis of right upper limb; F20.9 Schizophrenia, unspecified; Z86.19 Personal history of other infectious and parasitic diseases; Z79.899 Other long term (current) drug therapy; W22.01XA Walked into wall, initial encounter; Y93.89 Activity, other specified; Y92.89 Other specified places as the place of occurrence of the external cause; Y99.8 Other external cause status
CPT/HCPCS: 10060; 36415; 73201; 80053; 85025; 85610; 85730; 99285; J2001; Q9967; 99284

== ENCOUNTER 2020-09-21 16:31 | Emergency (ER) | payer MEDICARE, OTHER ==
[~2020-09-21] VITALS: Ht 162.6 cm; Wt 49.9 kg
[~2020-09-21 16:31] MED LIST changes: +ACET-2619 PO; +AMOX1TAB8 PO
[2020-09-21 16:36] VITALS: BP 101/61
== END 2020-09-21 17:12 | disposition left against medical advice (07) ==
LOC: MED 16:31
DX: Z48.00 Encounter for change or removal of nonsurgical wound dressing (principal); Z53.21 Procedure and treatment not carried out due to patient leaving prior to being seen by health care provider